=== PATIENT | female | born 1995 | race Caucasian/White ===

== ENCOUNTER 2023-02-08 17:38 | Emergency (ER) | payer MEDICAID ==
[~2023-02-08] VITALS: Ht 157.5 cm; Wt 63.5 kg
[~2023-02-08 17:38] MED LIST: IBUP-1969 PO
[2023-02-08 17:48] VITALS: BP_SYST 118; PULSE 80; RESP 18; TEMP 98.3; O2SAT 98
[2023-02-08 19:36] LABS: COVID19 ANTIGEN SOFIA FIA NEGATIVE (NEGATIVE)
[2023-02-08 19:40] LABS: INFLUENZA TYPE A Negative (NEGATIVE); INFLUENZA TYPE B NEGATIVE (NEGATIVE)
[2023-02-08 20:22] LABS: BILIRUBIN,URINE NEGATIVE (NEGATIVE); BLOOD, URINE NEGATIVE (NEGATIVE); CLARITY/URINE SL CLOUDY (CLEAR); COLOR,URINE YELLOW (YELLOW); GLUCOSE,URINE NEGATIVE (NEGATIVE); KETONES,URINE NEGATIVE (NEGATIVE); LEUKOCYTE ESTERASE ,URINE TRACE (NEGATIVE); NITRITE, URINE NEGATIVE (NEGATIVE); PH,URINE 7.5 (5.0-8.0); PROTEIN URINE NEGATIVE (NEGATIVE)
[2023-02-08 20:23] LABS: HCG,QUAL RESULT NEGATIVE (NEGATIVE)
[2023-02-08 20:32] LABS: BACTERIA,URINE FEW /HPF (None Seen); RBC,URINE NONE SEEN /HPF (0-3)
[2023-02-08 20:33] LABS: MUCUS,URINE None Seen /LPF (None Seen); URINE AMORPHOUS PHOSPHATES 2+ /HPF (None Seen)
[2023-02-08] MEDS ORDERED: ONDA-8 TL (20:42)
[2023-02-08] MEDS ORDERED: IBUP-1969 PO (20:42)
[2023-02-08] MEDS ORDERED: GUAI5SYR PO (20:42)
== END 2023-02-08 21:00 | disposition home or self-care (01) ==
LOC: SED 17:38
DX: B34.9 Viral infection, unspecified (principal); R05.9 Cough, unspecified; R11.0 Nausea; M79.10 Myalgia, unspecified site; Z79.899 Other long term (current) drug therapy; Z20.822 Contact with and (suspected) exposure to COVID-19
CPT/HCPCS: 36415; 81000; 81001; 81015; 81025; 84703; 99283

== ENCOUNTER 2023-02-13 22:17 | Emergency (ER) | payer MEDICAID ==
[~2023-02-13] VITALS: Ht 157.5 cm; Wt 63.5 kg
[~2023-02-13 22:17] MED LIST changes: +GUAI5SYR PO; +ONDA-8 TL
[2023-02-13 22:22] VITALS: BP_SYST 118; PULSE 68; RESP 18; TEMP 97.1; O2SAT 99
[2023-02-14] MEDS ORDERED: MED4 PO (00:41)
[2023-02-14 00:50] VITALS: BP_SYST 120; PULSE 80; RESP 18; TEMP 98.8; O2SAT 98
== END 2023-02-14 00:50 | disposition home or self-care (01) ==
LOC: SED 22:17
DX: L63.9 Alopecia areata, unspecified (principal); Z79.899 Other long term (current) drug therapy
CPT/HCPCS: 36415; 84443; 99283

== ENCOUNTER 2023-09-05 08:25 | Emergency (ER) | payer MEDICAID ==
[~2023-09-05] VITALS: Ht 157.5 cm; Wt 59.0 kg
[~2023-09-05 08:25] MED LIST changes: +MED4 PO
[2023-09-05 08:35] VITALS: BP_SYST 145; PULSE 85; RESP 18; TEMP 98.3; O2SAT 98
[2023-09-05] MEDS: EPINEPHRINE HCL/PF 1 MG/ML AMP IM ONE (08:42)
[2023-09-05 09:08] LABS: BILIRUBIN,URINE NEGATIVE (NEGATIVE); CLARITY/URINE CLEAR (CLEAR); COLOR,URINE YELLOW (YELLOW); GLUCOSE,URINE NEGATIVE (NEGATIVE); KETONES,URINE NEGATIVE (NEGATIVE); LEUKOCYTE ESTERASE ,URINE NEGATIVE (NEGATIVE); NITRITE, URINE NEGATIVE (NEGATIVE); PROTEIN URINE NEGATIVE (NEGATIVE); UROBILINOGEN,URINE 0.2 (0.2-1.0)
[2023-09-05 09:10] LABS: BLOOD, URINE TRACE (NEGATIVE)
[2023-09-05 09:17] LABS: BACTERIA,URINE RARE /HPF (None Seen); WBC,URINE 0-3 /HPF (0-3)
[2023-09-05] MEDS ORDERED: EPIN0.3P3 IM (09:48)
[2023-09-05 10:03] VITALS: BP_SYST 145; PULSE 85; RESP 18; TEMP 98.3; O2SAT 98
== END 2023-09-05 10:02 | disposition home or self-care (01) ==
LOC: SED 08:25
DX: L50.9 Urticaria, unspecified (principal); Z79.899 Other long term (current) drug therapy; Z79.2 Long term (current) use of antibiotics
CPT/HCPCS: 99283; 81001; 81025; 96372; J0171; 81000; 81015